=== PATIENT | male | born 1960 | race Caucasian/White ===

== ENCOUNTER → 2018-04-18 09:08 | Outpatient (CLI) | payer OTHER, SELFPAY ==
[2018-04-18 11:05] LABS: ALB/GLOB Ratio 0.9 RATIO (0.9-2.4); AST(SGOT) 25 U/L (15-37); Alanine Aminotransfer ALT/SGPT 34 U/L (16-61); Albumin, Serum 3.7 g/dL (3.2-5.0); Alkaline Phosphatase 89 U/L (45-117); Anion Gap 10 (5-15); BUN 17 mg/dL (7-18); BUN/Creat Ratio 15.3 RATIO (10-20); Calcium,Total 8.9 mg/dL (8.5-10.1); Chloride 105 mmol/L (98-107); Cholesterol 164 mg/dL (200); Creatinine, Serum 1.11 mg/dL (0.70-1.30); EST Glomerular Filtration Rate 72 mL/min (>60); Est Glom Filt Rate - Afr Amer 88 mL/min (>60); Globulin 3.9 g/dL (2.2-4.2); Glucose 84 mg/dL (74-106); High Density Lipoprotein 44 mg/dL; PSA,Total - Annual Screen 0.52 ng/mL (0.00-4.00); Potassium 3.8 mmol/L (3.5-5.1); Protein, Total 7.6 g/dL (6.4-8.2); Sodium Level 141 mmol/L (136-145); Triglycerides 118 mg/dL; Very Low Density Lipoprotein 24 mg/dL (5-40)
== END ==
PROVIDERS: Family Provider Family Medicine; PCP Family Medicine; Referring Provider Family Medicine; Visit Provider Family Medicine
DX: E78.5 Hyperlipidemia, unspecified (principal); R35.0 Frequency of micturition
CPT/HCPCS: 36415; 80053; 80061; 84153; G0103

== ENCOUNTER → 2018-11-22 09:05 | Outpatient (CLI) | payer OTHER, SELFPAY ==
[2018-04-07 13:11] VITALS: BMI 26.3
[2018-11-23 05:06] LABS: HEPATITIS B SURFACE AG Negative (Negative); Hepatitis A AB, Total Negative (Negative); Hepatitis A IgM Antibody Negative (Negative); Hepatitis B Core AB IgM Negative (Negative); Hepatitis B Core Ab Total Negative (Negative); Hepatitis C Ab <0.1 s/co ratio (0.0-0.9)
[2018-11-23 13:22] LABS: Hep B Surface Antibodies Non Reactive (.)
== END ==
PROVIDERS: Family Provider Family Medicine; PCP Family Medicine; Visit Provider Family Medicine
DX: Z20.5 Contact with and (suspected) exposure to viral hepatitis (principal)
CPT/HCPCS: 36415; 86704; 86705; 86706; 86708; 86709; 86803; 87340

== ENCOUNTER → 2020-05-21 16:06 | Outpatient (CLI) | payer OTHER, SELFPAY ==
[2020-05-21 15:31] VITALS: BMI 25.7
[2020-05-21 18:02] LABS: Absolute Neutrophil Count 4.7 X10^3/uL (2.0-7.7); Basophil# 0.02 X10^3/uL; Basophil% 0.3 % (0-1); Eosinophil# 0.06 X10^3/uL; Eosinophils% 0.9 % (0-5); Hematocrit 41.4 % (40-54); Hemoglobin 13.5 g/dL (13.0-16.5); Lymphocyte % 23.6 % (19-41); Mean Corp Hgb Conc 32.6 g/dL (32-36); Mean Corpuscular Hgb 29.2 pg (27.0-32.0); Mean Corpuscular Volume 89.6 fL (80-94); Mean Platelet Vol. 10.8 fl (6.2-12.0); Monocyte# 0.41 X10^3/uL; NRBC Flagged by Analyzer 0 % (0-5); Neutrophil # 4.68 X10^3/uL (2.7-7.7); Neutrophil % 69.1 % (47-70); Platelet Count 173 K/mm3 (150-450); RBC Distribution Width CV 12.2 % (11.6-14.6); RBC Distribution Width SD 39.8 fl (35.1-43.9); Red Blood Count 4.62 M/mm3 (4.6-6.2); White Blood Count 6.8 K/mm3 (4.4-11.0)
[2020-05-21 18:50] LABS: ALB/GLOB Ratio 0.9 RATIO (0.9-2.4); AST(SGOT) 21 U/L (15-37); Alanine Aminotransfer ALT/SGPT 23 U/L (16-61); Albumin, Serum 3.6 g/dL (3.2-5.0); Alkaline Phosphatase 91 U/L (45-117); Anion Gap 6 (5-15); BUN 20 mg/dL (7-18); BUN/Creat Ratio 18.2 RATIO (10-20); Calcium,Total 8.5 mg/dL (8.5-10.1); Chloride 110 mmol/L (98-107); Cholesterol 153 mg/dL (200); EST Glomerular Filtration Rate 73 mL/min (>60); Est Glom Filt Rate - Afr Amer 88 mL/min (>60); Globulin 3.8 g/dL (2.2-4.2); Glucose 108 mg/dL (74-106); High Density Lipoprotein 49 mg/dL; Potassium 3.2 mmol/L (3.5-5.1); Protein, Total 7.4 g/dL (6.4-8.2); Sodium Level 142 mmol/L (136-145); Triglycerides 110 mg/dL; Very Low Density Lipoprotein 22 mg/dL (5-40)
== END ==
PROVIDERS: PCP Family Medicine; Referring Provider Family Medicine; Visit Provider Family Medicine
DX: E78.5 Hyperlipidemia, unspecified (principal); R42 Dizziness and giddiness
CPT/HCPCS: 36415; 80053; 80061; 85025

== ENCOUNTER → 2021-05-21 08:59 | Outpatient (CLI) | payer OTHER, SELFPAY ==
[2021-05-21 12:59] LABS: ALB/GLOB Ratio 0.9 RATIO (0.9-2.4); AST(SGOT) 22 U/L (15-37); Alanine Aminotransfer ALT/SGPT 23 U/L (16-61); Albumin, Serum 3.5 g/dL (3.2-5.0); Alkaline Phosphatase 90 U/L (45-117); Anion Gap 6 (5-15); BUN 20 mg/dL (7-18); Calcium,Total 8.8 mg/dL (8.5-10.1); Chloride 106 mmol/L (98-107); Cholesterol 162 mg/dL (200); Creatinine, Serum 1.05 mg/dL (0.70-1.30); EST Glomerular Filtration Rate 76 mL/min (>60); Est Glom Filt Rate - Afr Amer 93 mL/min (>60); Glucose 63 mg/dL (74-106); High Density Lipoprotein 44 mg/dL; PSA,Total- Diagnostic 0.56 ng/mL (0.0-4.0); Potassium 4.1 mmol/L (3.5-5.1); Protein, Total 7.5 g/dL (6.4-8.2); Sodium Level 138 mmol/L (136-145); Triglycerides 100 mg/dL; Very Low Density Lipoprotein 20 mg/dL (5-40)
== END ==
PROVIDERS: PCP Family Medicine; Referring Provider Family Medicine; Visit Provider Family Medicine
DX: E78.5 Hyperlipidemia, unspecified (principal); I10 Essential (primary) hypertension; R35.1 Nocturia
CPT/HCPCS: 36415; 80053; 80061; 84153

== ENCOUNTER → 2021-12-16 | Outpatient (CLI) | payer BC, SELFPAY ==
--- NOTE | 2021-12-16 14:49 | RAD_ITS ---
STUDY: X-RAY - LUMBAR SPINE REASON FOR EXAM: Male, 61 years old. LOW BACK PAIN midline low back pain TECHNIQUE: XR Spine Lumbar 2 or 3 Views COMPARISON: None FINDINGS: Normal lumbar lordosis. There is no substantial scoliosis. There is a normal alignment of the vertebrae. There is multilevel endplate spondylosis of the lumbar vertebrae. Normal disc space heights. There is a compression deformity of the spine at level: L1 . These are age-indeterminate. MRI could further evaluate if of concern. The soft tissue structures are unremarkable. RAD/Lumbar Spine 2 or 3 Views IMPRESSION: There is a compression deformity of the spine at level: L1 . These are age-indeterminate. MRI could further evaluate if of concern. Electronically Signed: Godwin Funez MD at 15:19 EDT ,
== END | disposition home or self-care (01) ==
LOC: MTRAD 14:49
PROVIDERS: PCP Family Medicine; Referring Provider Physician Assistant; Visit Provider Physician Assistant
DX: M54.50 Low back pain, unspecified (principal)
CPT/HCPCS: 72100

== ENCOUNTER 2021-12-29 08:00 | Outpatient (RCR) | payer BC, SELFPAY ==
--- NOTE | 2021-12-22 07:57 | HP.PTEVAL ---
Patient's Visit Information YOSEF MCLEOD is a 61 year old M referred to Physical Therapy by TASHA Porter with a diagnosis of LBP. Date of Evaluation: 12/22/21 Physical Therapist: Álvaro Sales, CAMILLET, OCS, CSCS - Visit Plan Frequency: 1x/Week Duration: 2-4 Weeks Plan: weekly x 2-4 as needed. If doing well with activitiy modification and neutral spine(taught today) then teach core strength with pics for HEP and d/c. Pt to call if pain returns. - Subjective Dr. Mcconnell office recommended therapy as he had back pain a week ago which happens to him once in a great while. Gets it now and then after a long day in the tractor and it is hard to stand up. Got x rays and they showed OA. He doesn't think he needs therapy. Has not filled script for muscle spasms. Pain lasted just for that day and it typically happens with unloading hay or sitting in tractor bouncing for too long. May get a sharp pain if he turns wrong. It does not last long. The last week has been good. sometimes stiff in morning if sleeps wrong. Sleep is fine. Activities are normal but has to pause a little bit if it is happening. Pain is LB and was up to 8/10 stabbing at times. wears a belt for support at times. No leg symptoms. - Pain LBP Pain Intensity (Out of 10): 0 Pain Intensity Range: 0, 8 - Objective Walks without antalgia or pain today I, trasnfers I bed and chair without pain. Steps two at a time easily and reciprocally. LB AROM without limitations or pain today. PA pressure not painful. No soft tissue tenderness in back or buttocks today. - slump. - SLR. strength LE 4+/5 without myotoomal problems. Sensation LE WNL to gross light touch. reflexes 2/3 patella and achilles. core strength 4/5 abs and back extension without pain. - Balance/Special Test Scores Oswestry Low Back Score: 0 - Goals Goal 1:: I appropriate managment of condition and HEP Goal Time Frame: 2-4 Weeks Goal 2:: maintain no pain for the next week Goal Time Frame: 2 Weeks - Rehabilitation Potential Physical Therapy Diagnosis: Degenerative changes giving intermittent pain. Rehabilitation Potential: Good - Anticipated Interventions Patient/Client Instruction: Educate patient on: Condition, Plan of Care For the Purpose of:: To improve muscle performance and motor function, To increase tolerance to activity/condition/position Therapeutic Exercise to Include: Strength training, Dynamic Lumbar Stabilization For the Purpose of:: To increase tolerance to activity/condition/position Thank you for the opportunity to evaluate your patient. For Medicare and Medicare HMO plans, please review the plan of care and approve it. It will need to be FAXED BACK to us at [phone] for Medicare purposes. For Medicare only, by signing this I certify the plan of care. Please let me know if there are questions or concerns regarding this plan of care. Physician Signature: Date:
--- NOTE | 2021-12-29 08:34 | HP.PTDCSUM ---
It has been my pleasure to treat YOSEF MCLEOD referred by TASHA Porter, with the diagnosis of LBP for a total of 2 visit(s). Discharge Date: 12/29/21 Please see the following information for a summary of their discharge status. Subjective: Been doing all right. bailed 700 bails Wednesday and was stiff Wednesday but feeling good today. LBP Pain Intensity (Out of 10): 0 % Improvement: 90 Objective/Function: Good work ethic and no c/o pain during exercises. good ROM today with just slight pinch with L SB. Goal 1:: I appropriate managment of condition and HEP Goal Progress: Goal Met Goal 2:: maintain no pain for the next week Goal Progress: Goal Met Plan: d/c to HEP, pt wants to do them at home If there are questions or concerns regarding this patient's physical therapy, please feel free to call me at [phone]. Thank you for the referral of this patient. Sincerely, Álvaro Sales, DPT, OCS, CSCS Balance/Gait/Functional tests - Balance/Special Test Scores Oswestry Low Back Score: 0
== END 2021-12-29 08:53 | disposition home or self-care (01) ==
LOC: PT 08:00
PROVIDERS: PCP Family Medicine; Referring Provider Physician Assistant; Visit Provider Physician Assistant
DX: M54.50 Low back pain, unspecified (principal)
CPT/HCPCS: 97110; 97161

== ENCOUNTER → 2022-07-07 | Outpatient (CLI) | payer BC, SELFPAY ==
[2022-07-07 13:07] LABS: ALB/GLOB Ratio 1.1 RATIO (0.9-2.4); AST(SGOT) 29 U/L (15-37); Alanine Aminotransfer ALT/SGPT 31 U/L (16-61); Alkaline Phosphatase 93 U/L (45-117); Anion Gap 7 (5-15); BUN 23 mg/dL (7-18); BUN/Creat Ratio 20.9 RATIO (10-20); Calcium,Total 9.3 mg/dL (8.5-10.1); Chloride 105 mmol/L (98-107); Cholesterol 186 mg/dL (200); EST Glomerular Filtration Rate 72 mL/min (>60); Est Glom Filt Rate - Afr Amer 87 mL/min (>60); Globulin 3.5 g/dL (2.2-4.2); Glucose 89 mg/dL (74-106); High Density Lipoprotein 52 mg/dL; Potassium 4.6 mmol/L (3.5-5.1); Protein, Total 7.5 g/dL (6.4-8.2); Sodium Level 138 mmol/L (136-145); Triglycerides 79 mg/dL; Very Low Density Lipoprotein 16 mg/dL (5-40)
== END | disposition home or self-care (01) ==
LOC: BIMLAB 11:19
PROVIDERS: PCP Family Medicine; Referring Provider Family Medicine; Visit Provider Family Medicine
DX: E78.5 Hyperlipidemia, unspecified (principal)
CPT/HCPCS: 36415; 80053; 80061

== ENCOUNTER → 2023-06-10 | Outpatient (CLI) | payer OTHER, SELFPAY ==
[2023-06-10 16:08] LABS: ALB/GLOB Ratio 0.9 RATIO (0.9-2.4); AST(SGOT) 32 U/L (15-37); Alanine Aminotransfer ALT/SGPT 27 U/L (16-61); Albumin, Serum 3.5 g/dL (3.2-5.0); Alkaline Phosphatase 83 U/L (45-117); Anion Gap 7 (5-15); BUN 21 mg/dL (7-18); BUN/Creat Ratio 18.8 RATIO (10-20); Calcium,Total 8.5 mg/dL (8.5-10.1); Chloride 107 mmol/L (98-107); Cholesterol 149 mg/dL (200); Creatinine, Serum 1.12 mg/dL (0.70-1.30); EST Glomerular Filtration Rate 71 mL/min (>60); Est Glom Filt Rate - Afr Amer 85 mL/min (>60); Globulin 3.8 g/dL (2.2-4.2); Glucose 85 mg/dL (74-106); High Density Lipoprotein 49 mg/dL; Potassium 4.3 mmol/L (3.5-5.1); Protein, Total 7.3 g/dL (6.4-8.2); Sodium Level 140 mmol/L (136-145); Triglycerides 62 mg/dL; Very Low Density Lipoprotein 12 mg/dL (5-40)
== END | disposition home or self-care (01) ==
LOC: BIMLAB 12:01
PROVIDERS: PCP Family Medicine; Referring Provider Family Medicine; Visit Provider Family Medicine
DX: I10 Essential (primary) hypertension (principal)
CPT/HCPCS: 36415; 80053; 80061

== ENCOUNTER → 2024-09-12 | Outpatient (CLI) | payer OTHER, SELFPAY ==
[2024-09-12 13:04] LABS: ALB/GLOB Ratio 1.2 RATIO (0.9-2.4); AST(SGOT) 24 U/L (<=37); Alanine Aminotransfer ALT/SGPT 17 U/L (<=46); Alkaline Phosphatase 88 U/L (40-129); Anion Gap 11 (5-15); BUN 23 mg/dL (4-19); BUN/Creat Ratio 21.9 RATIO (10-20); Calcium,Total 9.2 mg/dL (7.6-11.0); Carbon Dioxide 23.1 mmol/L (21.0-32.0); Chloride 103 mmol/L (98-108); Creatinine, Serum 1.06 mg/dL (0.70-1.20); EST Glomerular Filtration Rate 79 (>60); Globulin 3.3 g/dL (2.2-4.2); Glucose 95 mg/dL (70-99); Potassium 4.1 mmol/L (3.3-5.1); Protein, Total 7.3 g/dL (5.9-8.4); Sodium Level 136 mmol/L (133-145); Total Bilirubin 0.62 mg/dL (0.00-1.30)
[2024-09-12 14:20] LABS: Cholesterol 170 mg/dL (<=200); High Density Lipoprotein 44 mg/dL; Low Density Lipoprotein Calc. 107 mg/dL; Triglycerides 93 mg/dL; Very Low Density Lipoprotein 19 mg/dL (5-40); cholesterol:hdl ratio screen 3.86
== END | disposition home or self-care (01) ==
LOC: BIMLAB 08:58
PROVIDERS: PCP Family Medicine; Visit Provider Family Medicine
DX: I10 Essential (primary) hypertension (principal); E78.5 Hyperlipidemia, unspecified
CPT/HCPCS: 36415; 80053; 80061

== ENCOUNTER 2024-12-08 10:35 | Day surgery (SDC) | payer OTHER, SELFPAY ==
[2024-12-08 11:02] VITALS: BP 133/86; PULSE 58; RESP 16; TEMP 36.2; O2SAT 100; BMI 26.0
[2024-12-08] MEDS: Lactated Ringers 1,000 ML 15 ML IV (11:05)
--- NOTE | 2024-12-08 11:25 | HP.PCM_ITS ---
HPI - General HPI Narrative YOSEF MCLEOD, is a 64 M who presents for screening colonoscopy. His last colonoscopy was 14 years ago. He is not having any abdominal pain or blood in the stool. [facility] Medical History (Updated 12/06/24 @ 14:07 by Ruth Ann Sullivan) Wears glasses Arthritis High cholesterol History of concussion Non-smoker Leg cramps History of stress test Laceration of left lower leg Hyperlipidemia Hypertension Bone fracture Anemia Home Medications ?Medication ?Instructions ?Recorded ?Last Taken ?Type lisinopril 10 mg tablet 10 mg PO DAILY #90 tabs 08/05 Unknown Rx pravastatin 20 mg tablet 20 mg PO DAILY #90 TABLETS 0 10/10/24 Unknown Rx Allergy/AdvReac Type Severity Reaction Status Date / Time ibuprofen (From Advil) Allergy Unknown Swollen Verified 12/08/24 11:02 neck Family History Mother Heart disease Father Heart disease Surgical History History of colonoscopy History of hand surgery History of appendectomy Social History (Updated 09/12/24 @ 08:36 by Ruth Ann Lloyd MA) adopted: No household members: spouse number of children: 2 current occupational status: employed current occupation: [employer] pets and animals: No sexually active: Yes Smoking Status: Never smoker alcohol intake: current alcohol intake frequency: holidays/special occasions only substance use type: does not use what type of physical activity do you participate in: running, bicycling and weight training frequency: daily do you feel safe at home: Yes Past Medical/Surgical History Planned Operation Planned Operative Procedure(s): CSCOPE Previous Hospitalizations/Surgeries HX Hospitalizations: No Any Problems With Anesthesia: No You/Your Family Experience Fever (Hyperthermia) With Anes: No Cholinesterase deficiency: No Cardiovascular Hx Hypertension: Yes (CONTROLLED WITH MED) Respiratory Hx Sleep Apnea: No Hx Respiratory Tract Infection/Cold (presently): No Do You Snore Loudly (louder than talking or can be heard): No Do You Often Feel Tired/ Fatigued/ Sleepy Dring Daytime?: No Has Anyone Observed You Stop Breathing During Sleep?: No Result (for STOP score): Negative Smoking Status: Never smoker Gastrointestinal Special diet followed at home: No Neurological Does patient have nerve stimulator: No Reproduction : No Miscellaneous Recent Exposure to Contagious Disease: No Allergies ibuprofen (From Advil) Allergy (Unknown, Verified 12/08/24 11:02) Swollen neck Discharge Is Pt Admitted From a Custodial, or a Snf: No After D/C, Where Do you Plan to Go: Return Home Vital Signs Vital Signs Vital Signs: 12/08/24 11:02 12/08/24 11:02 Temperature 97.2 F L Temperature Source Temporal Pulse Rate 58 L Respiratory Rate 16 Respiratory Pattern Normal Blood Pressure 133/86 H Blood Pressure Mean 101 Blood Pressure Source Monitor Blood Pressure Position Semi-Fowlers Blood Pressure Location Right Arm Pulse Ox 100 Oxygen Delivery Method Room Air Weight Weight: 176 lb 5.917 oz Body Mass Index (BMI) 26.0 Physical Exam Const alert and oriented x3 HEENT normocephalic Eyes PERRL Resp normal respiratory effort and normal air movement Cardio regular rate and regular rhythm GI soft to palpation, non-tender and non-distended Extremity normal to inspection Assessment & Plan Assessment/Plan (1) Encounter for screening for malignant neoplasm of colon: PLAN: I explained endoscopy in detail to the patient. I explained the risks including but not limited to stroke or heart attack with anesthesia, perforation of the GI tract, bleeding, infection. I explained that any of these could necessitate further emergency surgery. The patient understands and all questio ns were answered sufficiently. The patient wishes to proceed with procedure. Jose Barrera MD Pager: [facility] [address] [place] [address], [address] [place] [address] Office: Surgery Risks - Colonoscopy Risks Include but are not Limited To: Risks include but are not limited to: Bleeding, perforation requiring further surgery, inability to complete colonoscopy requiring barium enema.
[2024-12-08 11:31] VITALS: BP 133/86; PULSE 58; RESP 16; TEMP 36.2; O2SAT 100
--- NOTE | 2024-12-08 11:31 | PCM.PRE.AN2 ---
ASA Classification* ASA Classification ASA Classification: 2 Assessment & Plan Anesthesia* Anesthesia Assessment Anesthesia Assessment: Discussed sedation and/or anesthesia options, risks, benefits, and alternatives with patient/parents/legal guardian/POA. Questions invited. The patient/parents/legal guardian/POA seems to understand and agrees to proceed with anesthesia plan. Reviewed the physical assessment, medical history, allergy history and patient home medications list prior to surgery/procedure/anesthetic and documented any changes. Performed airway and anesthesia risk assessments. Anesthesia Type Anesthesia Type: MAC History Source History Obtained from:: Patient and Chart Anesthesia Focused Assessment* Temperature: 97.2 F Pulse Rate: 58 Blood Pressure: 133/86 Respiratory Rate: 16 Pulse Ox: 100 Airway Assessment Mouth opens: >3 cm Mallampati Score: II Focused Labs Anesthesia Preop lab: CBC WBC 6.8 K/mm3 (4.4-11.0) 05/21/20 16:07 05/21/20 RBC 4.62 M/mm3 (4.6-6.2) 05/21/20 16:07 05/21/20 Hgb 13.5 g/dL (13.0-16.5) 05/21/20 16:07 05/21/20 Hct 41.4 % (40-54) 05/21/20 16:07 05/21/20 Plt Count 173 K/mm3 (150-450) 05/21/20 16:07 05/21/20 CHEMISTRY Potassium 4.1 mmol/L (3.3-5.1) 09/12/24 08:59 09/12/24 Sodium 136 mmol/L (133-145) 09/12/24 08:59 09/12/24 BUN 23 mg/dL (4-19) H 09/12/24 08:59 09/12/24 Creatinine 1.06 mg/dL (0.70-1.20) 09/12/24 08:59 09/12/24 Glucose 95 mg/dL (70-99) 09/12/24 08:59 09/12/24 COAG Pre-Assessment Diagnosis/Proposed Procedure Planned Operative Procedure(s): CSCOPE Anesthesia History 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 When Was Last Pacemaker Check QUESTION #4 FULL TEXT: You/Your Family Experience fever (hyperthermia) with Anesthesia Last Oral Intake Last Oral intake: Last Oral Intake NPO since 08:00 12/08/24 11:02 Meds taken in AM with sips of No 12/08/24 11:02 water? Meds patient instructed to take am of surgery PONV PONV - math and physics instructor: PONV - math and physics instructor Female No 12/06/24 14:01 HX of Motion Sickness No 12/06/24 14:01 HX of N/V After Surgery No 12/06/24 14:01 Non-Smoker Yes 12/06/24 14:01 Duration of Surgery greater No 12/06/24 14:01 than 60 minutes Number of Risk Factors 1 12/06/24 14:01 PONV Score Low Risk 12/06/24 14:01 Height & Weight Height & Weight: Anesthesia: Height & Weight Height 5 ft 9 in 12/08/24 11:02 Weight: 80 kg 12/08/24 11:02 Body Mass Index (BMI) 26.0 12/08/24 11:02 Respiratory Assessment Respiratory Assessment - math and physics instructor: Respiratory Tract Infection Hx - math and physics instructor Hx Respiratory Tract Infection No 12/08/24 11:27 STOP Sleep Apnea STOP Sleep Apnea - math and physics instructor: STOP Sleep Apnea - math and physics instructor Hx Hypertension Yes: CONTROLLED WITH MED 12/08/24 11:27 Hx Sleep Apnea No 12/08/24 11:27 CPAP BIPAP Do you snore loudly (louder No 12/08/24 11:27 than talking or can be heard Do you often feel tired/ No 12/08/24 11:27 fatigued/ sleepy during daytime? Has anyone observed you stop No 12/08/24 11:27 breathing during sleep? STOP Results Negative 12/08/24 11:27 QUESTION #5 FULL TEXT : Do you snore loudly (louder than talking or can be heard through closed doors)? 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 Specify any problems Hx of Preganancy in last 3 N/A 12/06/24 14:01 Months Nurse Filling Out Transfusion NBUCHER 12/06/24 14:01 & Questions: Date: 12/06/24 12/06/24 14:01 Time: 14:02 12/06/24 14:01 Patient unable to answer at this time (ie. confused, unrespo /Reproduction History /Reproductive History - math and physics instructor: /Reproductive Hx- math and physics instructor Hx Now No 12/08/24 11:27 Gestational Age (in weeks): EDC: Hx Hx Para Hx Section SAB No 12/06/24 14:01 Active Medications Active Medications: Current Medications Generic Name Dose Route Start Last Admin Trade Name Freq PRN Reason Stop Dose Admin Lactated Ringer's 1,000 mls @ 15 mls/hr 12/08/24 10:45 12/08/24 11:05 IV 15 mls/hr .Q48H BASILIA Administration PFSH Medical History Wears glasses Arthritis High cholesterol History of concussion Non-smoker Leg cramps History of stress test Laceration of left lower leg Hyperlipidemia Hypertension Bone fracture Anemia Home Medications ?Medication ?Instructions ?Recorded ?Last Taken ?Type lisinopril 10 mg tablet 10 mg PO DAILY #90 tabs 10/10/24 Unknown Rx pravastatin 20 mg tablet 20 mg PO DAILY #90 TABLETS 10/10/24 Unknown Rx Allergy/AdvReac Type Severity Reaction Status Date / Time ibuprofen (From Advil) Allergy Unknown Swollen Verified 12/08/24 11:02 neck Family History Mother Heart disease Father Heart disease Surgical History History of colonoscopy History of hand surgery History of appendectomy Social History adopted: No household members: spouse number of children: 2 current occupational status: employed current occupation: [employer] pets and animals: No sexually active: Yes Smoking Status: Never smoker alcohol intake: current alcohol intake frequency: holidays/special occasions only substance use type: does not use what type of physical activity do you participate in: running, bicycling and weight training frequency: daily do you feel safe at home: Yes Review of Systems (Anesthesia) ROS Narrative System reviewed and no additional complaints, except as documented.
[2024-12-08 12:00] VITALS: BP 104/71; BP 133/86; PULSE 51; RESP 16; TEMP 36.2; O2SAT 98
--- NOTE | 2024-12-08 12:02 | OP.COLON_ITS ---
Patient Name: Venkata Pickard Procedure Date: 12/08/2024 11:01 AM Date of : 1960 Age: 64 Procedure: Colonoscopy Indications: Screening for colorectal malignant neoplasm Providers: Jose Barrera MD Referring MD: Gab Mcconnell Medicines: Propofol per Anesthesia Patient Profile: This is a 64 year old male. Refer to note in patient chart for documentation of history and physical. Last Colonoscopy: more than 10 years ago. Complications: No immediate complications. Procedure: Pre-Anesthesia Assessment: - Prior to the procedure, a History and Physical was performed, and patient medications and allergies were reviewed. The patient's tolerance of previous anesthesia was also reviewed. The risks and benefits of the procedure and the sedation options and risks were discussed with the patient. All questions were answered, and informed consent was obtained. Prior Anticoagulants: The patient has taken no anticoagulant or antiplatelet agents. After reviewing the risks and benefits, the patient was deemed in satisfactory condition to undergo the procedure. After I obtained informed consent, the scope was passed under direct vision. Throughout the procedure, the patient's blood pressure, pulse, and oxygen saturations were monitored continuously. The colonoscope was introduced through the anus and advanced to the cecum, identified by appendiceal orifice and ileocecal valve. The colonoscopy was performed without difficulty. The patient tolerated the procedure well. The quality of the bowel preparation was good. The ileocecal valve, appendiceal orifice, and rectum were photographed. Scope In: 11:42:48 AM Scope Withdrawal Time 0 hours 6 minutes 20 seconds Scope Out: 11:56:51 AM Total Procedure Duration Time 0 hours 14 minutes 3 seconds Findings: The entire examined colon appeared normal on direct and retroflexion views. Impression: - The entire examined colon is normal on direct and retroflexion views. - No specimens collected. Recommendation: - Discharge patient to home. - Resume previous diet. - Continue present medications. - Repeat colonoscopy in 10 years for screening purposes. Procedure Code(s): --- Professional --- 22174, Colonoscopy, flexible; diagnostic, including collection of specimen(s) by brushing or washing, when performed (separate procedure) Diagnosis Code(s): --- Professional --- Z12.11, Encounter for screening for malignant neoplasm of colon CPT copyright 2021 [employer]. All rights reserved. The codes documented in this report are preliminary and upon certified coder review may be revised to meet current compliance requirements. Jose Barrera MD 12/08/2024 12:00:59 PM This report has been signed electronically. Number of Addenda: 0 Note Initiated On: 12/08/2024 11:01 AM
--- NOTE | 2024-12-08 12:02 | OP.CCLET_ITS ---
12/08/2024 Gab Mcconnell Re : Colonoscopy procedure for Venkata Pickard Dear Dr. Mcconnell This procedure was performed on Sunday, December 08, 2024. My impressions and recommendations are as follows: Impressions : - The entire examined colon is normal on direct and retroflexion views. - No specimens collected. Recommendations : - Discharge patient to home. - Resume previous diet. - Continue present medications. - Repeat colonoscopy in 10 years for screening purposes. My findings are described in the full procedure note, which is enclosed. If I can be of further assistance, please feel free to contact me at Doctor phone number(s): , Work: . Sincerely, Jose Barrera MD 12/08/2024 12:00:59 PM This report has been signed electronically.
--- NOTE | 2024-12-08 12:04 | PCM.POST.ANE ---
Anesthesia: Postop Eval I Current Vital Signs Temperature: 97.2 F Pulse Rate: 57 Blood Pressure: 104/71 Respiratory Rate: 16 Pulse Ox: 99 Oxygen Delivery Method: Room Air Assessment Airway patent: Yes Spontaneous unlabored respirations: Yes Mental status: Awake nausea: No Vomiting: No Anesthesia Complication: No Fluid Hydration Crystalloid volume administer (ml): 500 Total IV fluid infused: 500 Progress Note Anesthesia document: Postop Eval 1 completed: Yes
[2024-12-08 12:05] VITALS: BP 104/71; BP 113/72; BP 133/86; PULSE 52; PULSE 57; RESP 16; TEMP 36.2; O2SAT 98; O2SAT 99
[2024-12-08 12:10] VITALS: BP 103/73; BP 133/86; PULSE 56; RESP 16; TEMP 36.2; O2SAT 100
[2024-12-08 12:34] VITALS: BP 133/86
--- NOTE | 2024-12-08 16:35 | PCM.POSTANE2 ---
Anesthesia Postop Eval I Sum Postop Eval Completion status Anesthesia document: Postop Eval 1 completed: Yes Anesthesia Postop Eval I Summary Anesthesia Postop Eval I Summary: Anesthesia Postop Eval I: Assessment Summary Airway patent Yes 12/08/24 12:05 [email or web address] Spontaneous unlabored Yes 12/08/24 12:05 [email or web address] respirations Mental status Awake 12/08/24 12:05 [email or web address] nausea No 12/08/24 12:05 [email or web address] Vomiting No 12/08/24 12:05 [email or web address] Anesthesia Postop Eval I: Fluid Summary Crystalloid volume administer 500 12/08/24 12:05 [email or web address] (ml) Colloids volume administered ( ml) Blood Product volume administered (ml) Total IV fluid infused 500 12/08/24 12:05 [email or web address] Anesthesia Postop Eval I: Summary Notes Anesthesia Complication No 12/08/24 12:05 [email or web address] Anesthesia Complication Comment: Post-operative progress note Anesthesia: Postop Eval II Evaluation Mental status: Awake Pain Level: 0 nausea: No Vomiting: No
== END 2024-12-08 12:40 | disposition home or self-care (01) ==
LOC: EN 10:38 → AC 10:39
PROVIDERS: PCP Family Medicine; Referring Provider Family Medicine; Visit Provider Surgery
PROC: 0DJD8ZZ Inspection of Lower Intestinal Tract, Via Natural or Artificial Opening Endoscopic (ICD-10-PCS; CPT 45378; principal; 2024-12-08 11:25)
DX: Z12.11 Encounter for screening for malignant neoplasm of colon (principal); I10 Essential (primary) hypertension; E78.00 Pure hypercholesterolemia, unspecified
CPT/HCPCS: 45378; J2405

== ENCOUNTER → 2025-06-21 | Outpatient (CLI) | payer OTHER, SELFPAY ==
[2025-06-21 10:33] LABS: PSA,Total- Diagnostic 0.58 ng/mL (0.00-4.00)
== END | disposition home or self-care (01) ==
LOC: LAB 09:01
PROVIDERS: PCP Family Medicine; Referring Provider Family Medicine; Visit Provider Family Medicine
DX: R35.1 Nocturia (principal)
CPT/HCPCS: 36415; 84153